=== PATIENT | male | born 1990 | race Caucasian/White ===

== ENCOUNTER 2018-09-05 12:52 | Emergency (ER) | payer BC, OTHER ==
[2018-09-05] MEDS: Tetan/Diph/Pertus SYR(Tdap)* 0.5 ML SYR(BOOSTRIX) use SYR IM ONE (15:26)
--- NOTE | 2018-09-05 16:13 | ED ---
Upper Extremity Pain - HPI Summary HPI Summary: Patient is a 28-year-old male who presents to the ED with a crush injury to the right distal tip of the little finger. Bleeding is controlled on arrival. Patient is endorsing approximately 4/10 pain. Denies any other injuries. Denies numbness/tingling. - History of Current Complaint Chief Complaint: EDLacSutureRecheck Stated Complaint: LT FIINGER CRUSHING INJ PER PT Time Seen by Provider: 09/05/18 13:39 Hx Obtained From: Patient Mechanism Of Injury: Direct Blow Onset/Duration: Started Hours Ago Timing: Constant Severity Initially: Moderate Severity Currently: Mild Pain Location: Finger Character: Aching Aggravating Factor(s): Nothing Alleviating Factor(s): Nothing Associated Signs & Symptoms: Positive: Bruising Related History: Dominant Hand Right - Risk Factors Non-Orthopedic Risk Factor: Negative DVT Risk Factors: Negative Septic Arthritis Risk Factor: Negative - Allergies/Home Medications Allergies/Adverse Reactions: Allergies Allergy/AdvReac Type Severity Reaction Status Date / Time No Known Allergies Allergy Verified 09/05/18 13:00 Home Medications: Home Medications Atorvastatin* [Lipitor*] 10 mg PO DAILY 09/05/18 [History Confirmed 09/05/18] Pantoprazole TAB * [Protonix TAB*] 40 mg PO DAILY 09/05/18 [History Confirmed ] PMH/Surg Hx/FS Hx/Imm Hx Previously Healthy: Yes Endocrine/Hematology History: Denies: Hx Diabetes, Hx Thyroid Disease Cardiovascular History: Denies: Hx Hypertension, Hx Pacemaker/ICD Respiratory History: Denies: Hx Asthma, Hx Chronic Obstructive Pulmonary Disease (COPD) GI History: Denies: Hx Ulcer Sensory History: Denies: Hx Hearing Aid Psychiatric History: Denies: Hx Panic Disorder - Surgical History Surgery Procedure, Year, and Place: tonsillectomy 10/2012 - Immunization History Hx Pertussis Vaccination: No Immunizations Up to Date: Yes Infectious Disease History: No Infectious Disease History: Denies: Hx Clostridium Difficile, Hx Hepatitis, Hx Human Immunodeficiency Virus (HIV), Hx of Known/Suspected MRSA, Hx Shingles, Hx Tuberculosis, Traveled Outside the [place] in Last 30 Days - Social History Occupation: Employed Full-time Alcohol Use: Occasionally Substance Use Type: Reports: None Smoking Status (MU): Heavy Every Day Tobacco Smoker Type: Cigarettes Amount Used/How Often: 1 ppd Review of Systems Constitutional: Negative Negative: Fever, Chills, Fatigue, Skin Diaphoresis Negative: Palpitations, Chest Pain Negative: Shortness Of Breath, Cough Genitourinary: Negative Positive: no symptoms reported, see HPI Positive: Arthralgia - right little finger. Negative: Myalgia Positive: Bruising Neurological: Negative All Other Systems Reviewed And Are Negative: Yes Physical Exam Triage Information Reviewed: Yes Vital Signs On Initial Exam: Initial Vitals Temp Pulse Resp BP Pulse Ox 98.3 F 84 16 136/79 95 09/05/18 12:58 09/05/18 12:58 09/05/18 12:58 09/05/18 12:58 09/05/18 12:58 Vital Signs Reviewed: Yes Appearance: Positive: Well-Appearing, Well-Nourished Skin: Positive: Warm, Skin Color Reflects Adequate Perfusion, Other - right distal tip small finger laceration nail bed + CMS Neck: Positive: Supple, No Lymphadenopathy Respiratory/Lung Sounds: Positive: Clear to Auscultation, Breath Sounds Present Cardiovascular: Positive: Pulses are Symmetrical in both Upper and Lower Extremities Musculoskeletal: Positive: Pain @ - distal tip R little finger Neurological: Positive: Speech Normal Psychiatric: Positive: Affect/Mood Appropriate Diagnostics - Vital Signs Vital Signs Temp Pulse Resp BP Pulse Ox 09/05/18 12:58 98.3 F 84 16 136/79 95 - Laboratory Lab Statement: Any lab studies that have been ordered have been reviewed, and results considered in the medical decision making process. Course/Dx - Course Course Of Treatment: Patient is evaluated for crush injury to the distal tip of the right little finger. There is a laceration to the volar side measuring 1 cm in length and is superficial, not requiring sutures. Nailbed involved in nail slightly dislodged laterally, bruising noted. Laceration to the nailbed. Bleeding is well-controlled. X-ray obtained which is a comminuted displaced open fracture to the tuft of the distal phalanx. Cleanse wound thoroughly by bedside washout and irrigation with 100cc's NS. Vaseline gauze wrapped, tube gauze applied. Patient is given Keflex for open fracture. He is also given pain control 2 days. Provider called or so clinic and secured a 1:[address] Singer for tomorrow, 09/06/18. Tetanus updated. - Diagnoses Differential Diagnosis/HQI/PQRI: Positive: Fracture (Open), Fracture (Closed) Provider Diagnoses: Crush injury, Open fracture Discharge - Sign-Out/Discharge Documenting (check all that apply): Patient Departure Patient Received Moderate/Deep Sedation with Procedure: No - Discharge Plan Condition: Stable Disposition: HOME Prescriptions: Cephalexin CAP* [Keflex CAP*] 500 mg PO TID #21 cap MDD 3 traMADol TAB* [Ultram*] 50 mg PO Q8H PRN #6 tab MDD pain PRN Reason: Pain Patient Education Materials: Finger Fracture (ED), Crush Injury (ED) Referrals: Joslyn Moore PA [Primary Care Provider] - Diane Singer MD [Medical Doctor] - 1 Day (Follow up appt is scheduled at 1: 15pm. ) Additional Instructions: Appt at 1:15pm tomorrow with Dr. Singer. Keflex three times daily x 7 days Ibuprofen 600mg three times daily Keep the finger splinted until follow up You may change the bandage everyday Keep antibiotic ointment applied - Billing Disposition and Condition Condition: STABLE Disposition: Home
[2018-09-05 16:40] VITALS: BP 143/68
== END 2018-09-05 15:30 | disposition home or self-care (01) ==
LOC: ED 12:52
DX: S62.636B Displaced fracture of distal phalanx of right little finger, initial encounter for open fracture (principal); X58.XXXA Exposure to other specified factors, initial encounter; Z23 Encounter for immunization; F17.210 Nicotine dependence, cigarettes, uncomplicated; Z79.899 Other long term (current) drug therapy
CPT/HCPCS: 73140; 90471; 90715; 99282